=== PATIENT | female | born 1990 | race Caucasian/White ===

== ENCOUNTER → 2018-02-08 10:24 | Outpatient (CLI) | payer OTHER, SELFPAY ==
[2018-02-08 11:54] LABS: hCG Titer Quant., Serum 16 mIU/mL (<9 non-preg)
[2018-02-10 14:42] LABS: hCG Titer Quant., Serum 5 mIU/mL (<9 non-preg)
== END ==
PROVIDERS: Visit Provider Obstetrics & Gynecology
DX: O20.0 Threatened abortion (principal); Z3A.00 Weeks of gestation of pregnancy not specified
CPT/HCPCS: 36415; 84702

== ENCOUNTER → 2018-02-12 18:35 | Outpatient (CLI) | payer OTHER, SELFPAY ==
[2018-02-16 08:42] LABS: HPV Reflexed? NOT INDICATED
== END ==
PROVIDERS: Visit Provider Nurse Practitioner Women's Health
DX: Z12.4 Encounter for screening for malignant neoplasm of cervix (principal)
CPT/HCPCS: 88175; G0145

== ENCOUNTER → 2018-08-21 16:48 | Outpatient (CLI) | payer BC, SELFPAY ==
[2018-08-21 16:05] VITALS: BMI 28.6
[2018-08-21 17:15] LABS: Absolute Lymphocyte Count 2.16 X10^3/ul (0.83-4.51); Absolute Neutrophil Count 8.6 X10^3/uL (2.0-7.7); Basophil# 0.01 X10^3/uL; Basophil% 0.1 % (0-1); Eosinophil# 0.07 X10^3/uL; Eosinophils% 0.6 % (0-5); Hematocrit 37.3 % (37-47); Hemoglobin 13.1 g/dl (12.0-15.0); Lymphocyte # 2.16 X10^3/ul (4.0); Lymphocyte % 18.7 % (19-41); Mean Corp Hgb Conc 35.1 g/gl (32-36); Mean Corpuscular Hgb 32.9 pg (27.0-32.0); Mean Corpuscular Volume 93.7 fL (81-99); Mean Platelet Vol. 9.2 fl (6.2-12.0); Monocyte# 0.71 X10^3/uL; Monocyte% 6.1 % (0-10); Neutrophil # 8.58 X10^3/uL (2.7-7.7); Neutrophil % 74.1 % (47-70); Platelet Count 157 K/mm3 (150-450); RBC Distribution Width CV 12.3 % (11.6-14.6); RBC Distribution Width SD 42.1 fl (35.1-43.9); Red Blood Count 3.98 M/mm3 (4.2-5.4); White Blood Count 11.6 K/mm3 (4.4-11.0)
[2018-08-21 17:20] LABS: POSITIVE COUNT NO; POSITIVE DIFFERENTIAL NO; POSITIVE MORPHOLOGY NO
[2018-08-21 17:28] LABS: Glucose Challenge Gest 1H 50g 99 mg/dL (70-140)
== END ==
PROVIDERS: Nurse Practitioner Women's Health; Referring Provider Obstetrics & Gynecology; Visit Provider Obstetrics & Gynecology
DX: Z34.90 Encounter for supervision of normal pregnancy, unspecified, unspecified trimester (principal)
CPT/HCPCS: 36415; 82950; 85025

== ENCOUNTER → 2018-10-22 12:33 | Outpatient (CLI) | payer BC, SELFPAY ==
[2018-10-22 10:06] VITALS: BMI 31.6
== END ==
PROVIDERS: Referring Provider Obstetrics & Gynecology; Visit Provider Obstetrics & Gynecology
DX: Z34.90 Encounter for supervision of normal pregnancy, unspecified, unspecified trimester (principal)
CPT/HCPCS: 87081

== ENCOUNTER 2018-11-06 09:57 | Outpatient (CLI) | payer BC, SELFPAY ==
[2018-11-05 10:27] VITALS: BMI 31.6
--- NOTE | 2018-11-06 11:28 | OB.TRI.PN_ITS ---
Progress Notes Date of Service: 11/06/18 Progress Note: fht 120 moderate variability reactive no decelerations category I tracing [place]: irregular. a/p false labor no cervical change and negative rom plus dc home labor precautions
== END 2018-11-06 11:10 | disposition home or self-care (01) ==
LOC: WPOUT 10:00 → OBT 10:01
PROVIDERS: Referring Provider Obstetrics & Gynecology; Visit Provider Obstetrics & Gynecology
DX: O47.9 False labor, unspecified (principal); Z3A.00 Weeks of gestation of pregnancy not specified
CPT/HCPCS: 59025; 59050; 99218; G0378

== ENCOUNTER 2018-11-12 18:00 | Inpatient (IN) | payer BC, SELFPAY ==
[2018-10-15 10:21] VITALS: BMI 31.6
[2018-11-06 10:25] VITALS: BMI 32.2
[2018-11-06 10:50] LABS: ROM Internal Control Test YES-OK TO RESULT pt. (Internal QC); ROM Patient Test Negative (Negative)
[2018-11-12 10:25] VITALS: BMI 32.2
[2018-11-12] MEDS: Lactated Ringers 1,000 ML 50 ML IV ×2 (18:10→20:58)
[2018-11-12 18:31] LABS: Absolute Lymphocyte Count 2.54 X10^3/ul (0.83-4.51); Absolute Neutrophil Count 17.1 X10^3/uL (2.0-7.7); Basophil# 0.02 X10^3/uL; Basophil% 0.1 % (0-1); Eosinophil# 0.03 X10^3/uL; Eosinophils% 0.1 % (0-5); Hematocrit 35.8 % (37-47); Hemoglobin 12.1 g/dl (12.0-15.0); Lymphocyte # 2.54 X10^3/ul (4.0); Lymphocyte % 12.1 % (19-41); Mean Corp Hgb Conc 33.8 g/gl (32-36); Mean Corpuscular Hgb 30.1 pg (27.0-32.0); Mean Corpuscular Volume 89.1 fL (81-99); Mean Platelet Vol. 9.9 fl (6.2-12.0); Monocyte# 1.21 X10^3/uL; Monocyte% 5.8 % (0-10); Neutrophil # 17.05 X10^3/uL (2.7-7.7); Neutrophil % 81.6 % (47-70); Platelet Count 235 K/mm3 (150-450); RBC Distribution Width CV 12.5 % (11.6-14.6); RBC Distribution Width SD 40.2 fl (35.1-43.9); Red Blood Count 4.02 M/mm3 (4.2-5.4); White Blood Count 20.9 K/mm3 (4.4-11.0)
[2018-11-12 18:32] LABS: POSITIVE COUNT NO; POSITIVE DIFFERENTIAL NO; POSITIVE MORPHOLOGY NO
[2018-11-12] MEDS: fentaNYL-bupivacaine (epidural) 100 ML BAG EPIDURAL ×3 (19:30→23:00)
[2018-11-12] MEDS: Oxytocin 30 units/NS 500 ml 30 UNITS/500 ML IV.SOLN IV (20:52)
[2018-11-12] MEDS: Ondansetron 4 MG/2 ML Vial IV (21:04)
[2018-11-13] MEDS: Amnioinfusion- 0.9% NS 1,000 ML IV.SOLN. INTRA-UTER (01:25)
[2018-11-13] MEDS: Lactated Ringers 1,000 ML 50 ML IV (01:59)
--- NOTE | 2018-11-13 02:40 | HP.PCM_ITS ---
- Problem List (1) ASCUS of cervix with negative high risk HPV Status: Acute Comment: 04/2018. (2) Status: Acute Qualifiers: Comment: D[facility] [place] records reviewed and scanned. anatomy scan normal. 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 Is patient in pain?: No Allergies sulfamethoxazole [From ] Allergy (Intermediate, Verified 11/12/18 10:25) unknown trimethoprim [From ] Allergy (Mild, Verified 11/12/18 10:25) unknown Medications docosahexanoic acid 200 mg capsule 1 mg PO DAILY 02/12/18 [History Confirmed 11/12/18] ranitidine 150 mg capsule 150 mg PO DAILY 07/03/18 [History Confirmed 11/12/18] Last Menstral Period: 02/06/18 Zika: Zika virus screening: Negative : No PFSH PFSH Medical History Hemochromatosis (Acute) History of miscarriage (Acute) Subchorionic bleed (Acute) Abnormal Pap smear of cervix (Resolved) Surgical History History of breast augmentation (Resolved) Status post colposcopy (Resolved) Social History Smoking Status: Never smoker alcohol intake: current details: occasionaly substance use type: does not use caffeine: Yes what type of physical activity do you participate in: aerobics, weight training frequency: 3-4 times per week seatbelt use: always do you feel safe at home: Yes additional social history: -Lakhwinder- site controller Patient does not work Pregancy History 2 Elective abortions Hx Para 1 Spontaneous abortions Hx # Term Pregnancies Ectopic pregnancies Hx # Pregnancies Multiple births # of living children Past Pregnancies Del. Date Name GA/Weeks Outcome Route Bth Weight Gen Labor Lgth Anesthesia Del Locatn Provider FOB 04/21/16 Roena 38 live - full term 7lsb 16oz Female 35 hours epidural Esteban [facility] [place] Dr. Tim Keane Delivery Date: 04/21/16 On 02/12/18 @ 13:22 Yaneth Nickerson Had high blood pressure at 38 weeks and was induced due to this. No issues during delivery. HPI 28 yo @ 39w6d presents IAL 4 plus cm dilated. she has had contraction all day and has had increased discharge and spotting, no lof. she has had an uncomplicated OB Visit RISHI Calculator Estimated Delivery Date 11/13/18 Based on LMP (certain) 02/06/18 Current WG 39w 6d Number 1 Expected Delivery Route/Plan Specific Issue/Plans flu vaccine: given tdap vaccine: given rhogam: na LARC form signed: declines labor support person: Lakhwinder pain management: epidural cut cord/dad catch: cord : yes PP control planned: condoms special requests: [] Initial Weight: 160 lb Date EGA Weight BP Urine Prot Glucose FHR FuHt Pres Mov CTX Dilation Effaced St Visit Note 07/03/18 21w 0d 167 lb (+7 lb) 120/70 150 obtain records from previous office- no vb lof good fm no regular ctx. 07/17/18 23w 0d 169 lb 8 oz (+9 lb 8 oz) 110/70 Negative Negative 147 Active absent Fell at home last pm. Landed on arm, side. No bruising, bleeding, CTX. Good FM. 07/30/18 24w 6d 174 lb 6 oz (+14 lb 6 oz) 100/80 Negative Negative 140 Active absent no vb lof good fm no regular ctx 08/21/18 28w 0d 177 lb 8 oz (+17 lb 8 oz) 118/70 Negative Negative 132 28 Active absent Doing well. No VB, LOF. 09/04/18 30w 0d 180 lb (+20 lb) 106/70 Negative Negative 130 30 Active absent no vb lof good fm nore gualr ctx 09/26/18 33w 1d 182 lb (+22 lb) 124/72 Negative Negative 152 33 Active absent No VB, LOF. Returned from [place] yesterday. Treated out there for bronchitis. Is improving, still has cough. 10/09/18 35w 0d 184 lb (+24 lb) 110/80 Negative Negative 140 38 Active absent no vb lof good fm no regular ctx schedule us for uterine size date discrepancy 10/15/18 35w 6d 184 lb (+24 lb) 106/70 Negative Negative 143 37 Cephalic Active absent Doing well. NO reg CTX, LOF or VB. 10/22/18 36w 6d 186 lb 6 oz (+26 lb 6 oz) 122/70 Negative Negative 140 38 Cephalic Active absent 1 2: 0 -3 no vb lof good fm n oregular ctx 10/30/18 38w 0d 186 lb 6 oz (+26 lb 6 oz) 120/82 Negative Negative 137 39 Cephalic Active absent 1.30 -3 No VB, LOF. Some low back discomfort but no CTX. Good FM 11/05/18 38w 6d 186 lb 8 oz (+26 lb 8 oz) 112/74 Negative Negative 135 40 Cephalic Active absent 1.5 5: 0 -2 no vb lof good fm n oregular ctx 11/08/18 39w 2d 188 lb (+28 lb) 118/60 Negative Negative 135 37 Cephalic Active absent 1.5 5: 0 -1 discussed with patient IOL secondary to childcare issues and limited social support, will induce if able but schedule full next week. reevaluate daily 11/12/18 39w 6d 186 lb (+26 lb) 132/82 Negative Negative 130 40 Cephalic Active absent 3 8: 0 -1 co ctx no vb lof good fm Visit Notes Visit Date: 11/12/18 ??co ctx no vb lof good fm ??Jessica Grimes MD on 11/12/18 Visit Date: 11/08/18 ??discussed with patient IOL secondary to childcare issues and limited social support, will induce if able but schedule full next week. reevaluate daily ??Jessica Grimes MD on 11/08/18 Visit Date: 11/05/18 ??no vb lof good fm n oregular ctx ??Jessica Grimes MD on 11/05/18 Visit Date: 10/30/18 ??No VB, LOF. Some low back discomfort but no CTX. Good FM ??MARI PhillipsC on 10/30/18 Visit Date: 10/22/18 ??no vb lof good fm n oregular ctx ??Jessica Grimes MD on 10/22/18 Visit Date: 10/15/18 ??Doing well. NO reg CTX, LOF or VB. ??MARI PhillipsC on 10/15/18 Visit Date: 10/09/18 ??no vb lof good fm no regular ctx schedule us for uterine size date discrepancy ??Jessica Grimes MD on 10/09/18 Visit Date: 09/26/18 ??No VB, LOF. Returned from [place] yesterday. Treated out there for bronchitis. Is improving, still has cough. ??DORA Phillips on 09/26/18 Visit Date: 09/04/18 ??no vb lof good fm nore gualr ctx ??Jessica Grimes MD on 09/08/18 Visit Date: 08/21/18 ??Doing well. No VB, LOF. ??DORA Phillips on 08/21/18 Visit Date: 07/30/18 ??no vb lof good fm no regular ctx ??Jessica Grimes MD on 07/30/18 Visit Date: 07/17/18 ??Fell at home last pm. Landed on arm, side. No bruising, bleeding, CTX. Good FM. ??DORA Phillips on 07/17/18 Visit Date: 07/03/18 ??obtain records from previous office- no vb lof good fm no regular ctx. ??Jessica Grimes MD on 07/11/18 ACOG First Trimester First Trimester: Second Trimester Second Trimester: Signs and Symptoms of Labor, Selecting a care provider, Reproductive Life Planning, Care Planning, Tobacco Cessation, Depression/Anxiety and Intimate Partner Violence Third Trimester Third Trimester: Pain Management Plans, Labor support person(s), Immediate Larc, Movement Monitoring and Infant Feeding Yes ; discussed Trial of Labor after Counseling or discussed Circumcision preference Diagnostics Diagnostics Labs Hct 37.3 % (37-47) 08/21/18 Hgb 13.1 g/dl (12.0-15.0) 08/21/18 Glucose 1 Hr 50 gm 99 mg/dL (70-140) 08/21/18 Details: HIV: Urine Culture: Sequential Screen: NIPT Screen: ROS Const Reports system reviewed and no additional complaints, except as docu Card Reports system reviewed and no additional complaints, except as docu Resp Reports system reviewed and no additional complaints, except as docu GI Reports system reviewed and no additional complaints, except as docu, Reports nausea Reports system reviewed and no additional complaints, except as docu Musc Reports system reviewed and no additional complaints, except as docu Exam Const General: cooperative, healthy appearing, comfortable, anxious HENMT Head: normal to inspection Nose: external nose normal Face and sinus: normal facial exam Neck Neck: normal visual inspection, full ROM, no lymphadenopathy Thyroid: thyroid normal Chest Chest palpation & inspection: normal inspection of the chest Resp Effort & Inspection: normal respiratory effort GI Inspection: normal to inspection Palpation: soft, other (gravid uterus) Other: infant vertex and appropriate size for gestational age Other: Cervical Exam: Extrem General: pedal edema Results [id number] Office Urine Glucose Negative Last Edit by Francie Figueroa on 11/12/18 10:26 Office Urine Protein Negative Last Edit by Francie Figueroa on 11/12/18 10:26 Assessment & Plan active labor had originially planned IOL but patient is actively rayna and made change to 4 cm dilation. admit IAL and get epidural. Orders Orders: POC Urinalysis 2 Dip (Clinic) Today Coding Level of Care Code OB Routine Diagnoses ASCUS of cervix with negative high risk HPV R87.610 39 weeks gestation of Z3A.39 ??Weeks of gestation: 39 weeks Encounter for supervision of other normal in third trimester Z34.83 ??Normal : other normal ??Trimester: third trimester
--- NOTE | 2018-11-13 03:36 | OP.PCM_ITS ---
Problem List (1) ASCUS of cervix with negative high risk HPV Status: Acute Comment: 04/2018. (2) Status: Acute Qualifiers: Comment: D[facility] records reviewed and scanned. anatomy scan normal. (3) Supervision of normal Status: Acute Qualifiers: Comment: PRR RISHI 11/13/18 PC Ravi Lakhwinder (4) Active labor at term Status: Acute Vaginal Delivery Maternal Presentation: Active Labor 40 weeks IAL Amniotic Membrane Rupture Type: Artificial Amniotic Fluid Description: Clear Final RISHI: 11/13/18 Gestational age: 40 Weeks and 0 Days Date of Procedure: 11/13/18 Pre-Operative Diagnosis: ial Post-Operative Diagnosis: same Surgery/ Procedure Performed: Spontaneous Vaginal Delivery Type of Anesthesia: Epidural Description of Procedure: Patient began pushing and delivered the head in the ROP presentation. The head was delivered atraumatically . The anterior and posterior shoulders delivered without complication followed by the rest of the and the infant was placed on the maternal abdomen. Delayed cord clamping was employed for approximately 60 seconds. Cord was clamped and cut and gentle traction was applied to the cord and the placenta delivered spontaneously immediately follow ing it was noted to be intact with three-vessel cord. The perineum and vagina were inspected and noted to have no laceration. EBL was 150 cc. Patient and infant tolerated delivery well. Presentation: ROP Placental Delivery Description: Spontaneous Placenta Disposition: [facility] Cord Vessel Description: 3 Vessels Cord Entanglement: None Estimated Blood Loss: 150 Infant A gender: Male (1 minute): 8 (5 minute): 9 Episiotomy Description: None Laceration: None Medications given after delivery: IV Pitocin Complications: None
[2018-11-13] MEDS: Oxytocin 30 units/NS 500 ml 30 UNITS/500 ML IV.SOLN 334 UNITS IV (03:54)
[2018-11-13] MEDS: Oxytocin 30 units/NS 500 ml 30 UNITS/500 ML IV.SOLN 167 UNITS IV (04:26)
[2018-11-13] MEDS: Acetaminophen 500 MG Tablet 1000 MG PO (07:50)
[2018-11-13 07:57] VITALS: BP 100/59; PULSE 97; RESP 16; TEMP 36.6; O2SAT 98
[2018-11-13] MEDS: Famotidine 20 MG Tablet PO (10:47)
[2018-11-13] MEDS: Prenatal Vits Tablet 1 TABLET PO (10:47)
[2018-11-13] MEDS: Senna/Docusate Sodium 1 Tablet PO (11:02)
[2018-11-13 11:08] VITALS: BP 105/54; PULSE 82; RESP 16; TEMP 36.7; O2SAT 96
--- NOTE | 2018-11-13 13:08 | NURSING ---
Patient voided 200 and then 350 and fundas down to u/1 to u/u
[2018-11-13 15:53] VITALS: BP 105/56; PULSE 83; RESP 16; TEMP 36.7; O2SAT 99
[2018-11-13] MEDS: Naproxen 250 MG Tablet 500 MG PO ×2 (15:56→23:54)
[2018-11-13 20:15] VITALS: BP 108/47; PULSE 71; RESP 16; TEMP 35.9
[2018-11-13 23:58] VITALS: BP 93/46; PULSE 74; RESP 15; TEMP 36.6
[2018-11-14 04:06] VITALS: BP 96/55; PULSE 68; RESP 16; TEMP 36.3
[2018-11-14 08:20] VITALS: BP 108/60; PULSE 75; RESP 16; TEMP 36.3
[2018-11-14] MEDS: Prenatal Vits Tablet 1 TABLET PO (10:06)
--- NOTE | 2018-11-14 11:33 | PCM.PN.OB ---
Patient Problems: Active and Suspected Problems (Last Reviewed 11/12/18 @ 10:25 by Francie Figueroa) Active labor at term (Acute) Subjective: doing well no complaints pain controlled no CP SOB N V ambulating well tolerating po lochia moderate, going well - Physical Exam General: Alert, Oriented x3 Vital Signs Temp Pulse Resp BP Pulse Ox 97.4 F L 75 16 108/60 99 11/14/18 08:20 11/14/18 08:20 11/14/18 08:20 11/14/18 08:20 11/13/18 15:53 Oxygen Delivery Method Room Air Weight: 188 lb Body Mass Index (BMI) 32.2 Intake and Output for Last 24 Hours 11/12/18 11/13/18 11/14/18 23:59 23:59 23:59 Output Total 1200 / 1200 950 / 950 Balance -1200 / -1200 -950 / -950 Medical Necessity - Tobacco Use Smoking Status: Never smoker Assessment/Plan All Active Problems (Last Reviewed 11/12/18 @ 10:25 by Francie Figueroa) Active labor at term (Acute) ASCUS of cervix with negative high risk HPV (Acute) Supervision of normal (Acute) (Acute) Supervision of high risk , antepartum (Resolved) s/p PPD # 1 1. routine post delivery care 2. breast feeding- support given 3. rh positive 4. rubella immune
--- NOTE | 2018-11-14 11:34 | DCINST_ITS ---
Discharge Diet: No Restrictions Discharge Activity: Return to Normal Activity, May not drive while taking narcotic pain medications., May Shower May resume sexual activity in: 4-6 weeks Call your doctor if your incision/area has: Continuous Slow Oozing, Sudden Increased Bleeding, Increased Pain/ Swelling, Increased Redness, Foul Smelling Discharge Additional Instructions: If you experience any of the following, contact your healthcare provider. * Bleeding that soaks a pad every hour for 2 hours * Fever 100.4 or higher * Unrelieved incision or abdominal pain * Swelling, redness, discharge or bleeding from your incision or episiotomy site * Your incision begins to separate * Problems urinating (including inability to urinate or burning while urinating). * Visual changes * Severe headache * Flu-like symptoms * Pain or redness in one of both of your breasts * Pain, warmth, tenderness or swelling in your legs, especially the calf area * Frequent nausea and vomiting * Symptoms of depression or anxiety If you experience any of the following, call 911 or go to the nearest Emergency Room. * Chest pain * Problems breathing * Seizure activity * Partial or complete paralysis of a body part, slurred speech, weakness or drooping of the face, or a sudden inability to walk or hold your balance Allergies/Adverse Reactions: Allergies sulfamethoxazole [From ] Allergy (Intermediate, Verified 11/12/18 10:25) unknown trimethoprim [From Marra] Allergy (Mild, Verified 11/12/18 10:25) unknown Medications to take at Discharge docosahexanoic acid 200 mg capsule 1 mg PO DAILY 02/12/18 ranitidine 150 mg capsule 150 mg PO DAILY 07/03/18 Doxylamine Succinate [Unisom Sleep Aid] 25 mg PO Q8H PRN PRN 11/12/18 Please Follow Up With: Jessica Grimes MD - [phone] When: Call to make an appointment with your doctor in 6 weeks. If you had elevated Blood pressure or 4th degree laceration you will need to be seen in 2 weeks. Primary Care Physician: Young Santacruz,Out of [Primary Care Provider] - Test Results: Test results from this visit will be discussed in further detail at your follow- up appointment, if applicable.
--- NOTE | 2018-11-14 11:34 | PCM.DCVAG ---
Discharge Diet: No Restrictions Discharge Activity: Return to Normal Activity, May not drive while taking narcotic pain medications., May Shower May resume sexual activity in: 4-6 weeks Call your doctor if your incision/area has: Continuous Slow Oozing, Sudden Increased Bleeding, Increased Pain/ Swelling, Increased Redness, Foul Smelling Discharge Additional Instructions: If you experience any of the following, contact your healthcare provider. Bleeding that soaks a pad every hour for 2 hours Fever 100.4 or higher Unrelieved incision or abdominal pain Swelling, redness, discharge or bleeding from your incision or episiotomy site Your incision begins to separate Problems urinating (including inability to urinate or burning while urinating). Visual changes Severe headache Flu-like symptoms Pain or redness in one of both of your breasts Pain, warmth, tenderness or swelling in your legs, especially the calf area Frequent nausea and vomiting Symptoms of depression or anxiety If you experience any of the following, call 911 or go to the nearest Emergency Room. Chest pain Problems breathing Seizure activity Partial or complete paralysis of a body part, slurred speech, weakness or drooping of the face, or a sudden inability to walk or hold your balance Allergies/Adverse Reactions: Allergies sulfamethoxazole [From Marra] Allergy (Intermediate, Verified 11/12/18 10:25) unknown trimethoprim [From Marra] Allergy (Mild, Verified 11/12/18 10:25) unknown Medications to take at Discharge docosahexanoic acid 200 mg capsule 1 mg PO DAILY 02/12/18 ranitidine 150 mg capsule 150 mg PO DAILY 07/03/18 Doxylamine Succinate [Unisom Sleep Aid] 25 mg PO Q8H PRN PRN 11/12/18 Please Follow Up With: Jessica Grimes MD - [phone] When: Call to make an appointment with your doctor in 6 weeks. If you had elevated Blood pressure or 4th degree laceration you will need to be seen in 2 weeks. Primary Care Physician: Young Santacruz,Out of [Primary Care Provider] - Test Results: Test results from this visit will be discussed in further detail at your follow-up appointment, if applicable.
[2018-11-14 13:45] VITALS: BP 108/62; PULSE 69; RESP 16; TEMP 36.6
== END 2018-11-14 13:45 | disposition home or self-care (01) | DRG 807 ==
LOC: WPOUT 18:24
PROVIDERS: Admitting Provider Obstetrics & Gynecology; Referring Provider Obstetrics & Gynecology; Visit Provider Obstetrics & Gynecology
DX: O34.43 Maternal care for other abnormalities of cervix, third trimester (principal); Z37.0 Single live birth; O99.513 Diseases of the respiratory system complicating pregnancy, third trimester; J45.909 Unspecified asthma, uncomplicated; Z3A.40 40 weeks gestation of pregnancy; Z87.59 Personal history of other complications of pregnancy, childbirth and the puerperium
CPT/HCPCS: 59025; 59050; 84112; 85025; 86850; 86900; 99218; J7030; J7120; G0378; J2405